=== PATIENT | female | born 1965 | race Caucasian/White ===

== ENCOUNTER → 2019-01-18 | Outpatient (CLI) | payer BC ==
[~2019-01-18] MED LIST: AMLO5TAB10 PO; BUPIVACAINE MPF 0.25% 10 ML VIAL. ONE; CARI350T14 PO; EZET10TA18 PO; IBUP200T44 PO; IOHEXOL 180 MG/ML 10 ML VIAL. ONE; NAPR220C4 PO; methylPREDNISolone ACETATE 80 MG/ML VIAL. ONE
--- NOTE | 2019-01-19 03:40 | PAIN ---
DATE OF SERVICE: 01/18/2019 INITIAL CONSULTATION FOR PAIN CLINIC CHIEF COMPLAINT: Low back and right lower extremity pain. HISTORY OF PRESENT ILLNESS: The patient is a 53-year-old female who presents with history of pain since early 2017, not a result of any specific injury or accident that she is aware of, but the pain has been getting worse over time in the low back and the right leg, posterior gluteus, posterior thigh, radiating to posterior calf and foot with numbness and tingling in the ankle. The patient describes the pain as constant, throbbing with numbness and radiating pain, cramping at times, worse with walking, standing, changing positions, better with sitting or lying down, does not awaken her from sleep at night, does not affect her bowel or bladder control, but does affect her ability to walk or stand. Somewhere for about 15-20 minutes she has to sit down and stop and rest. The patient reports she has had physical therapy. She has had chiropractic treatment, which is ongoing, and epidural injections in 07/2018 at an outside facility. 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 The patient is taking Aleve as well as Motrin, neither one is decreasing the pain significantly as well. The patient reports no loss of motor function, but significant fatigability with the right leg with walking and standing and changing positions, especially getting up from a seated position. She notices the pain more often and also when she is working as she is on her feet most of her working shift and walking on hard floors, climbing stairs, etc. The patient did have an MRI scan of the lumbar spine, which shows multilevel degenerative changes at L4-L5 with mild facet arthrosis. L5-S1 shows diffuse disk bulge with central protrusion, [id number] facet arthrosis and [id number] bilateral neural foraminal narrowing at that level. The patient rates her disability from 0-10, 10 being the worst, as a 10 with family and home responsibilities, recreation and social activity, occupation and sexual behavior, 8 with self-care, and 5 with life support activities. PAST MEDICAL HISTORY: Significant for hypertension, type 2 diabetes, arthritis, and acid reflux. PREVIOUS SURGERY: Include tubal ligation, exploratory laparotomy, left hip replacement, and right index finger surgery. CURRENT MEDICATIONS: Include ibuprofen, Aleve, carisoprodol, Zetia, and amlodipine. ALLERGIES: THE PATIENT IS ALLERGIC TO CELEBREX, SULFA, AND TRIMETHOPRIM. FAMILY HISTORY: Significant for diabetes. SOCIAL HISTORY: The patient drinks about 2-3 alcoholic drinks a month on average. Smokes cigarettes less than a pack a day, but has for 35 years and still smoking currently. The patient denies any illegal, illicit, or recreational drugs. 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 REVIEW OF SYSTEMS: The patient's review of systems is positive for those items mentioned in history of present illness. All systems reviewed and otherwise negative. It is complete, full and well documented on the patient's chart. PHYSICAL EXAMINATION: GENERAL: Blood pressure 158/95, pulse is 90, respirations 18, and temperature 97.8 degrees Fahrenheit. Height is 61 inches and weight is 151 pounds. GENERAL: The patient is awake, alert, oriented, appropriate, very pleasant demeanor. HEENT: Shows normocephalic and atraumatic. Extraocular movements are intact and symmetrical. Oral cavity: Mucous membranes are moist and pink. Dentition is intact. NECK: Shows anterior throat supple without palpable lymphadenopathy noted. Swallow reflex symmetrical. CHEST: Shows normal on inspection. Breath sounds are clear to auscultation bilaterally. HEART: Shows S1 and S2 clear. No murmurs auscultated. ABDOMEN: Soft, nontender, and nondistended. No palpable organomegaly is noted. No rebound or guarding demonstrated. BACK: The patient's back shows spine grossly in the midline. Slight exaggeration of thoracic kyphosis and minor flattening of lumbar lordotic curvature. Lumbar paraspinous muscle shows symmetrical on inspection. On palpation, it shows some moderate tenderness diffusely bilaterally and diffusely in the middle and lower distribution of paraspinous muscles. No tenderness over the spinous processes, sacrum, or sacroiliac regions. EXTREMITIES: The patient's lower extremities show deep tendon reflexes 2+ in the patellar, 1+ tendo-calcaneus. Sensory equal. Motor exam is approximately 4 on a scale of 5 on right with dorsiflexion and extension, quadriceps and hamstring flexion, 5/5 on the left. Peripheral pulses are 1+ posterior tibia. No peripheral edema is noted. Lower extremities are warm and dry to touch, equal in color and appearance. The patient does have a positive straight leg raise on the right at about 35 degrees, decreased with knee flexion with pain into the posterior thigh. Left side is negative. Gaenslen's and Jose's maneuvers are negative bilaterally as well. The patient is able to stand, stand on her toes without difficulty or loss of balance, walks with a normal appearing gait, not favoring the right or left lower extremity and significantly, not use any assistive devices to ambulate. SKIN: Shows warm and dry, good turgor. No edema. No sores, rashes, or bruises. IMPRESSION: 1. This is a 53-year-old female with approximate a year to a year and half history of low back and right lower extremity pain in a radicular fashion. 2. Lumbar MRI scan as noted. 3. Arthritis. 4. Hypertension. 5. Diabetes. PLAN: Options were discussed with the patient including conservative medical managements, physical therapies, and interventional techniques and she has been referred by her neurosurgeon to discuss spinal cord stimulation although she is not certain she would like to try this. We will give some information regarding this, but also we will try a right-sided L5-S1 transforaminal injection as she has not had this performed and on reviewing her epidural injections from outside facility, these were performed at the L4-L5 level. The patient would like to proceed with this. We discussed the procedure using description as well as anatomical models to describe the procedure. Risks were then discussed including, but not limited to bleeding, infection, possibility of epidural hematoma, subsequent neurologic compromise, dural puncture, headaches, spinal cord and/or nerve damage, side effects of steroid medication, exposure to fluoroscopy, potential injection of the vertebral artery at that level and permanent ischemic damage as well as poor results regarding pain control. The patient understands and wished to proceed. The patient will return to the clinic in approximately 2 weeks for followup. She was counseled on return appointment, activity level, and side effects to be aware of. DIAGNOSIS: Lumbar radiculopathy with lumbar degenerative disk disease. PROCEDURE: Right-sided L5-S1 transforaminal injection using C-arm fluoroscopic guidance under sterile prep and drape using local anesthetic. MEDICATION INJECTED: A total of 2 mL of 0.25% bupivacaine, 80 mg Depo-Medrol and 1.5 mL of Isovue for contrast with good spread medially into the epidural space as well as laterally along the nerve root at the L5-S1 level on the right. No uptake was noted with digital subtraction. CONDITION AT DISCHARGE: Stable. The patient tolerated the procedure well and had no complications. VERONICA CARVAJAL MD DR: GUERITA/vinayak JOB#: [id number] / [id number]
== END ==
LOC: PNCL 10:24
PROVIDERS: ATTEND Anesthesiology
DX: M51.16 Intervertebral disc disorders with radiculopathy, lumbar region (principal); I10 Essential (primary) hypertension; E11.9 Type 2 diabetes mellitus without complications; K21.9 Gastro-esophageal reflux disease without esophagitis; Z87.39 Personal history of other diseases of the musculoskeletal system and connective tissue; Z98.51 Tubal ligation status; Z96.642 Presence of left artificial hip joint; Z88.1 Allergy status to other antibiotic agents; Z88.8 Allergy status to other drugs, medicaments and biological substances; Z79.84 Long term (current) use of oral hypoglycemic drugs
CPT/HCPCS: 64483; J1040; J3490; Q9965

== ENCOUNTER → 2019-02-14 | Outpatient (CLI) | payer BC ==
[~2019-02-14] MED LIST changes: -EZET10TA18 PO; +EZET10TA20 PO; +PANT40TA77 PO
--- NOTE | 2019-02-14 21:09 | PAIN ---
DATE OF SERVICE: 02/14/2019 PROGRESS NOTE FOR PAIN CLINIC DIAGNOSES: Lumbar radiculopathy with lumbar degenerative disk disease. HISTORY OF PRESENT ILLNESS: The patient is a 53-year-old female who returns for followup status post right-sided transforaminal injection x 1. The patient reports she was about 30% better for several weeks, about 3 weeks or so the pain has been decreased, but still present in the low back, right leg, right posterior gluteus, posterior thigh, posterior calf and ankle, but the numbness in her feet is gone. The patient reports she has some tingling in the back and leg, cramping, aching and tight sensation, worse with walking, standing, changing positions, better at night, does not awaken her from sleep. It is better when she sits down and rests. The patient reports her pain is 8 on a scale of 10 at all times, worst, at its least, 10 on average, but is 8 today. The patient reports that she has started physical therapy and they are mostly working with her back and her left leg. She feels this is helpful, but only just started. The patient reports no new motor or sensory deficits, no new bowel or bladder incontinence or other complaints. PHYSICAL EXAMINATION: VITAL SIGNS: Blood pressure 173/99, pulse 81, respirations 16, temperature is 98.1 degrees Fahrenheit, weight is 149 pounds. GENERAL: The patient is awake, alert, oriented, appropriate, very pleasant demeanor. HEENT: Shows normocephalic, atraumatic. Extraocular movements are intact and symmetrical. Oral cavity: Mucous membranes moist and pink. Dentition is intact. NECK: Shows anterior throat supple without palpable lymphadenopathy noted. Swallow reflex is symmetrical. CHEST: Shows normal on inspection. Breath sounds clear to auscultation bilaterally. HEART: Shows S1, S2 clear. No murmurs auscultated. ABDOMEN: Soft, nontender, nondistended. BACK: Shows spine grossly in the midline. Lumbar paraspinous muscle shows symmetrical on inspection, with palpation shows some mild tenderness but only in the low lumbar distribution on the right, but not the left, but symmetrical without evidence of atrophy, hypertrophy or trigger points. EXTREMITIES: The patient's lower extremities show deep tendon reflexes 2+ in the patellar, 1+ tendo-calcaneus tendons. Motor exam is approximately 4 on a scale of 5 with right dorsiflexion, extension, 5/5 on the left. Peripheral pulses are 1+. No peripheral edema is noted bilaterally. Options were discussed with the patient. The patient's old chart was reviewed as her current medication regimen updated. Current review of systems updated today as well. We will proceed with a second in a series of right-sided L5-S1 transforaminal injection using C-arm fluoroscopic guidance. Risks were again discussed including, but not limited to bleeding, infection, possibility of epidural hematoma, subsequent neurological compromise, dural puncture, headaches, spinal cord and/or nerve damage, potential injection of the vertebral artery at that level and permanent ischemic damage as well as poor results regarding pain control and exposure of fluoroscopy. The patient understands and wished to proceed. The patient will return to clinic in approximately 2 weeks for followup. She was counseled as to return appointment, activity level and side effects to be aware of. DIAGNOSIS: Lumbar radiculopathy with lumbar degenerative disk disease. PROCEDURE: Transforaminal right-sided L5-S1 injection using C-arm fluoroscopic guidance under sterile prep and drape using local anesthetic. MEDICATION INJECTED: A total of 80 mg Depo-Medrol plus 2 mL of 0.25% bupivacaine and 1.5 mL of Isovue for contrast with negative aspiration throughout, good tracking of the contrast medially into the epidural space as well as laterally along the L5-S1 nerve root on the right side. No washout using digital subtraction is noted. CONDITION AT DISCHARGE: Stable. The patient tolerated the procedure well, had no complications. VERONICA CARVAJAL MD DR: GUERITA/vinayak JOB#: [id number] / [id number]
== END ==
LOC: PNCL 10:51
PROVIDERS: ATTEND Anesthesiology
DX: M51.16 Intervertebral disc disorders with radiculopathy, lumbar region (principal)
CPT/HCPCS: 64483; J1040; J3490; Q9965

== ENCOUNTER → 2019-03-02 | Outpatient (CLI) | payer BC ==
[~2019-03-02] MED LIST changes: -BUPIVACAINE MPF 0.25% 10 ML VIAL. ONE; +NIAC500T PO; +methylPREDNISolone ACETATE 40 MG/ML VIAL. ONE
--- NOTE | 2019-03-02 21:12 | PAIN ---
DATE OF SERVICE: 03/02/2019 PROGRESS NOTE FOR PAIN CLINIC DIAGNOSES: Lumbar radiculopathy with lumbar degenerative disk disease. HISTORY OF PRESENT ILLNESS: The patient is a 53-year-old female who returns for followup status post transforaminal injection x 2, right L5-S1. The patient reports her first injection was helpful second one only about 20% improvement overall. The patient reports still significant pain in the low back, posterior gluteus, posterior thigh on the right side radiating to the posterior calf on the right, worse with walking, standing, change in positions. The patient describes it as aching and tight, cramping on and off in intensity, rated at 9 on a scale of 10 at all times and a 9 today. The patient reports no new motor or sensory deficits, but still significant pain with walking, standing, especially at work. She is on her feet most of her working shift. The patient reports it awakens her from sleep at least every 5-6 hours as well. The patient reports no new motor or sensory deficits, no new bowel or bladder incontinence or other complaints. PHYSICAL EXAMINATION: VITAL SIGNS: The patient's blood pressure is 178/105, pulse 79, respirations 16, temperature 97.6 degrees Fahrenheit, and weight is 148 pounds. GENERAL: The patient is awake, alert, oriented, appropriate, very pleasant demeanor. HEENT: Head is normocephalic, atraumatic. Extraocular movements are intact and symmetrical. Oral cavity: Mucous membranes moist and pink. Dentition is intact. NECK: Shows anterior throat supple without palpable lymphadenopathy noted. Swallow reflex symmetrical. CHEST: Shows normal on inspection. Breath sounds clear to auscultation bilaterally. HEART: Shows S1, S2 clear. No murmurs auscultated. ABDOMEN: Soft, nontender, nondistended. No palpable organomegaly is noted. No rebound or guarding demonstrated. BACK: Shows spine grossly in the midline. Normal appearing thoracic kyphosis and lumbar lordotic curvature. Lumbar paraspinous muscle shows symmetrical on inspection, on palpation shows some moderate tenderness diffusely bilaterally, but only diffusely without radiation. EXTREMITIES: Lower extremities show deep tendon reflexes 2+ in the patellar, 1+ tendo-calcaneus tendons. Motor exam is approximately 4 on a scale of 5 with right dorsiflexion, extension, 5/5 on the left. Peripheral pulses are 1+. No peripheral edema is noted bilaterally. Options were discussed with the patient. The patient's old chart was reviewed as her current medication regimen updated. Current review of systems updated today as well. We will proceed with a translaminar approach L5-S1 lumbar epidural steroid injection today with fluoroscopic guidance. Risks were again discussed including, but not limited to bleeding, infection, possibility of epidural hematoma, subsequent neurological compromise, dural puncture, headaches, spinal cord and/or nerve damage, side effects of steroid medication and poor results regarding pain control. The patient understands and wished to proceed. The patient will return to clinic in approximately 2 weeks for followup. She was counseled on return appointment, activity level and side effects to be aware of. DIAGNOSIS: Lumbar radiculopathy with lumbar degenerative disk disease. PROCEDURE: Lumbar epidural steroid injection, translaminar approach L5-S1 level using C-arm fluoroscopic guidance under sterile prep and drape using local anesthetic. MEDICATION INJECTED: A total of 120 mg Depo-Medrol plus 10 mL of preservative-free normal saline and 2 mL of contrast. CONDITION AT DISCHARGE: Stable. The patient tolerated the procedure well, had no complications. VERONICA CARVAJAL MD DR: GUERITA/vinayak JOB#: [id number] / [id number]
== END ==
LOC: PNCL 10:24
PROVIDERS: ATTEND Anesthesiology
DX: M51.16 Intervertebral disc disorders with radiculopathy, lumbar region (principal)
CPT/HCPCS: 62323; J1030; J1040; Q9965